=== PATIENT | female | born 1955 | race Caucasian/White ===

== ENCOUNTER 2020-12-16 09:57 | Outpatient (CLI) | payer OTHER, SELFPAY ==
--- NOTE | 2020-12-16 10:04 | MM_ITS ---
WS: [id number] BILATERAL DIGITAL SCREENING MAMMOGRAPHY WITH CAD CLINICAL INFORMATION: SCREENING HISTORY: Screening mammogram. No current complaints. COMPARISON: TECHNIQUE: Bilateral CC and MLO views. FINDINGS: Scattered fibroglandular densities bilaterally. No suspicious focal mass, asymmetry, calcifications, or architectural distortion. No evidence of malignancy. A few punctate and lucent centered calcificat ions. MM/[place] [id number] IMPRESSION: BI-RADS: 2-Benign FOLLOW UP: 1 Year Follow-up Recommend return to annual screening mammography.
== END 2020-12-16 09:58 | disposition home or self-care (01) ==
LOC: RADSHAW 10:03
PROVIDERS: Family Provider Family Medicine; PCP Family Medicine; Visit Provider Family Medicine
DX: Z12.31 Encounter for screening mammogram for malignant neoplasm of breast (principal)
CPT/HCPCS: 77067

== ENCOUNTER → 2022-04-02 12:15 | Outpatient (BNVA) | payer MEDICARE, SELFPAY | PROVIDERS: Family Provider Family Medicine; PCP Family Medicine; Visit Provider Family Medicine | DX: R10.2 Pelvic and perineal pain (principal); N39.0 Urinary tract infection, site not specified; L98.9 Disorder of the skin and subcutaneous tissue, unspecified | CPT/HCPCS: 81000; 87086 ==

== ENCOUNTER 2022-06-01 08:58 | Outpatient (CLI) | payer MEDICARE, SELFPAY ==
--- NOTE | 2022-06-01 09:07 | MM_ITS ---
WS: [id number] BILATERAL SCREENING DIGITAL TOMOSYNTHESIS MAMMOGRAM WITH CAD HISTORY: SCREENING COMPARISON: 12/16/2020 and 12/20/2018 Bilateral CC and MLO views with tomosynthesis and synthetic mammography submitted. Computer aided det ection analyzed. Breast composition: There are scattered areas of fibroglandular density. No suspicious masses, microc alcifications or architectural distortion. Benign calcifications in each breast. MM/[place] [id number] IMPRESSION: BI-RADS: 2-Benign FOLLOW UP: 1 Year Follow-up
== END 2022-06-01 08:59 | disposition home or self-care (01) ==
LOC: RAD 08:59
PROVIDERS: PCP Family Medicine; Visit Provider Family Medicine
DX: Z12.31 Encounter for screening mammogram for malignant neoplasm of breast (principal)
CPT/HCPCS: 77063; 77067

== ENCOUNTER → 2023-06-07 12:22 | Outpatient (BNVA) | payer MEDICARE, SELFPAY | PROVIDERS: PCP Family Medicine; Visit Provider Family Medicine | DX: Z51.81 Encounter for therapeutic drug level monitoring (principal); E78.5 Hyperlipidemia, unspecified; E53.8 Deficiency of other specified B group vitamins; R53.81 Other malaise; R53.83 Other fatigue; Z13.220 Encounter for screening for lipoid disorders; R73.09 Other abnormal glucose | CPT/HCPCS: 80053; 80061; 82607; 83036; 84439; 84443; 85025 ==

== ENCOUNTER 2023-06-09 10:51 | Outpatient (CLI) | payer MEDICARE, SELFPAY ==
--- NOTE | 2023-06-09 10:57 | MM_ITS ---
WS: [id number] BILATERAL SCREENING DIGITAL TOMOSYNTHESIS MAMMOGRAM WITH CAD HISTORY: SCREENING COMPARISON: 06/01/2022 and 12/16/2020 Bilateral CC and MLO views with tomosynthesis and synthetic mammography submitted. Computer aided det ection analyzed. Breast composition: There are scattered areas of fibroglandular density. No suspicious masses, microc alcifications or architectural distortion. Benign calcifications in each breast. IMPRESSION: MM/[place] [id number] BI-RADS: 2-Benign FOLLOW UP: 1 Year Follow-up
== END 2023-06-09 10:52 | disposition home or self-care (01) ==
LOC: RAD 10:51
PROVIDERS: PCP Family Medicine; Visit Provider Family Medicine
DX: Z12.31 Encounter for screening mammogram for malignant neoplasm of breast (principal)
CPT/HCPCS: 77063; 77067

== ENCOUNTER 2024-07-16 08:18 | Outpatient (CLI) | payer MEDICARE, SELFPAY ==
--- NOTE | 2024-07-16 08:30 | CT_ITS ---
WS: [id number] CT ABDOMEN AND PELVIS WITH CONTRAST HISTORY: LLQ abd pain TECHNIQUE: Imaging performed of the abdomen and pelvis with IV contrast. Single phase imaging of the abdomen. Coronal and sagittal reformats are submitted. All CT scans at [facility] use at [address] one of these dose optimization techniques: automated exposure control; mA and/or kV adjustment per patient size (includes targeted exams where dose is matched to clinical indication); or iterative re construction. IV CONTRAST: Omnipaque 350; 100 mL IV. Oral contrast: No DLP: 751.35 mGy.cm COMPARISON: 08/25/2022 Lower thorax: Lung bases are clear. Heart is normal size. No hiatal hernia. Liver/biliary system: Normal size liver. 6 mm low-attenuation nodule in the posterior RIGHT lobe of t he liver was present in 2012 also. No intrahepatic bile duct dilatation. Normal portal vein. Gallbladder: Prior cholecystectomy. Pancreas: Normal size pancreas and pancreatic duct. No adjacent inflammation. Spleen: Normal size spleen. No mass or infarct. Adrenal glands: Normal. Right kidney: Normal. Left kidney: Normal. Aorta: Mild atherosclerosis aorta. Limited enhancement of the mesenteric arteries as a function of th e contrast injection. Only a very small portion of the celiac axis is well opacified. Lymphadenopathy: None. Free fluid: None. GI tract: Nondistended stomach. No small bowel obstruction. Moderate diffuse constipation. There is h igh density curvilinear material in the cecum. Atypical configuration for undissolved medicinal table ts. This will need to be further evaluated. There are a few additional areas of increased density wit hin the distal small bowel also. Normal appendix. Descending colon and sigmoid colon diverticulosis. No acute diverticulitis. No obstructing lesions. Abdominal wall: Marked thinning of the abdominal wall musculature. Greater thinning on the RIGHT. Pelvis: Prior hysterectomy. Bones: Osteopenia. 5 mm anterolisthesis of L4. CT/CT abdomen pelvis w con* [id number] IMPRESSION: 1. No acute abdominal or pelvic abnormalities. 2. High density material in the cecum. This may be medicinal tablets. The conf iguration is not typical of medicinal tablets. Suggest CT follow-up. The most h elpful follow-up examination is probably repeat CT abdomen and pelvis with IV c ontrast only to evaluate a change in this high density material. Calcified mass needs to be excluded. 3. Distal colonic diverticulosis without acute diverticulitis. 4. Prior hysterectomy and cholecystectomy. 5. Normal appendix. 6. No GI tract ischemia. 7. Mesenteric vessels are poorly visualized. This is probably a function of li mited contrast bolus injection.
[2024-07-16 09:15] LABS: Blood Urea Nitrogen 8 mg/dL (8-23); Glomerular Filtration Rate 71.5 mL/min (90-130)
[2024-07-16] MEDS: iohexol 350 mg/mL 500 mL Btl (per mL) IV (09:24)
== END 2024-07-16 08:19 | disposition home or self-care (01) ==
PROVIDERS: PCP Family Medicine; Visit Provider Family Medicine
DX: K57.90 Diverticulosis of intestine, part unspecified, without perforation or abscess without bleeding (principal); R93.3 Abnormal findings on diagnostic imaging of other parts of digestive tract; Z90.49 Acquired absence of other specified parts of digestive tract; Z90.710 Acquired absence of both cervix and uterus
CPT/HCPCS: 74177; 82565; 84520

== ENCOUNTER → 2024-07-18 13:11 | Outpatient (BNVA) | payer MEDICARE, SELFPAY | PROVIDERS: PCP Family Medicine; Visit Provider Family Medicine | DX: Z00.00 Encounter for general adult medical examination without abnormal findings (principal); E55.9 Vitamin D deficiency, unspecified; Z13.6 Encounter for screening for cardiovascular disorders; Z51.81 Encounter for therapeutic drug level monitoring; Z13.220 Encounter for screening for lipoid disorders | CPT/HCPCS: 80053; 80061; 82306; 85025 ==

== ENCOUNTER 2024-07-24 11:42 | Outpatient (CLI) | payer MEDICARE, SELFPAY ==
--- NOTE | 2024-07-24 11:45 | MM_ITS ---
WS: [id number] Bilateral screening 3D tomosynthesis digital mammogram, 07/24/2024 11:45 AM Clinical Data: Screening mammogram Comparison: 06/09/2023, 06/01/2022, 12/16/2020, 12/20/2018, 10/05/2017, 08/11/2016, 11/29/2013, 02/23/2011, , 01/03/2009, 01/10/2008, 10/05/2006. Findings: No spiculated masses or clustered calcifications are seen. There are no secondary signs of carcinoma . MM/MM scr BI tomosynthesis [id number] Impression: Negative bilateral mammogram unchanged. Recommend annual screening mammograms. BIRADS: 1 - Negative. FOLLOW UP: 1 Year Follow-up DENSITY: There are scattered areas of fibroglandular density. The CAD construction checker was used
== END 2024-07-24 11:43 | disposition home or self-care (01) ==
LOC: RAD 11:43
PROVIDERS: PCP Family Medicine; Visit Provider Family Medicine
DX: Z12.31 Encounter for screening mammogram for malignant neoplasm of breast (principal)
CPT/HCPCS: 77063; 77067

== ENCOUNTER 2024-08-13 08:01 | Outpatient (CLI) | payer MEDICARE, SELFPAY ==
--- NOTE | 2024-08-13 09:30 | CT_ITS ---
WS: [id number] CT ABDOMEN AND PELVIS WITH CONTRAST HISTORY: Radiopaque lesion in the cecum - Needing follow up TECHNIQUE: Imaging performed of the abdomen and pelvis with IV contrast. Single phase imaging of the abdomen. Coronal and sagittal reformats are submitted. All CT scans at [facility] use at [facility] one of these dose optimization techniques: automated exposure control; mA and/or kV adjustment per patient size (includes targeted exams where dose is matched to clinical indication); or iterative re construction. IV CONTRAST: Omnipaque 350; 100 mL IV. Oral contrast: Yes. DLP: 729.56 mGy.cm COMPARISON: 07/16/2024 Lower thorax: Lung bases are clear. Heart is normal size. Small hiatal hernia. Liver/biliary system: Normal size liver with a stable 6 mm cyst in the posterior RIGHT lobe. No intra hepatic duct dilatation. Gallbladder: Prior cholecystectomy. Pancreas: Normal size pancreas and pancreatic duct. No adjacent inflammation. Spleen: Normal size spleen. No mass or infarct. Adrenal glands: Normal. Right kidney: Normal. Left kidney: Normal. Aorta: Normal. Lymphadenopathy: None. Free fluid: None. GI tract: No small bowel obstruction. Normally distended stomach. Cecum is deep within the pelvis. Pa tient was given oral contrast which obscures the intraluminal content and the previously described po ssible foreign body in the cecum. No obvious persistent abnormalities identified but limited due to t he oral contrast. There is no obstructive pattern. Moderate distal colonic diverticulosis without acu te diverticulitis. Abdominal wall: Unremarkable abdominal wall. No hernia. Marked thinning and atrophy of the RIGHT abdo rosina wall musculature. Pelvis: Prior hysterectomy. No free fluid. Bones: Mild increase in lumbar lordosis. L4 anterolisthesis by 5 mm. Moderate degenerative changes at the LEFT hip. CT/CT abdomen pelvis w con* [id number] IMPRESSION: 1. No persistent foreign body noted within the cecum. Limited evaluation as pa tient was given oral contrast which obscures the lumen of the GI tract for january ined foreign bodies. 2. No adenopathy or ascites. 3. No renal or GI tract obstruction. 4. Prior cholecystectomy and hysterectomy.
[2024-08-13] MEDS: iohexol 350 mg/mL 500 mL Btl (per mL) IV (09:35)
[2024-08-13] MEDS: iohexol 350 mg/mL 500 mL Btl (per mL) PO (09:35)
== END 2024-08-13 08:02 | disposition home or self-care (01) ==
LOC: RAD 08:04
PROVIDERS: PCP Family Medicine; Visit Provider Family Medicine
DX: R93.3 Abnormal findings on diagnostic imaging of other parts of digestive tract (principal); K44.9 Diaphragmatic hernia without obstruction or gangrene; K57.30 Diverticulosis of large intestine without perforation or abscess without bleeding; R93.5 Abnormal findings on diagnostic imaging of other abdominal regions, including retroperitoneum; M40.56 Lordosis, unspecified, lumbar region; M43.16 Spondylolisthesis, lumbar region; M16.12 Unilateral primary osteoarthritis, left hip; Z90.49 Acquired absence of other specified parts of digestive tract; Z90.710 Acquired absence of both cervix and uterus
CPT/HCPCS: 74177

== ENCOUNTER → 2025-03-14 10:40 | Outpatient (BNVA) | payer MEDICARE, SELFPAY | PROVIDERS: PCP Family Medicine; Referring Provider Family Medicine; Visit Provider Student in an Organized Health Care Education/Training Program | DX: K57.92 Diverticulitis of intestine, part unspecified, without perforation or abscess without bleeding (principal) | CPT/HCPCS: 99204 ==

== ENCOUNTER → 2025-04-02 09:14 | Outpatient (BNVA) | payer MEDICARE, SELFPAY | PROVIDERS: PCP Family Medicine; Visit Provider Physician Assistant | DX: G56.01 Carpal tunnel syndrome, right upper limb (principal) | CPT/HCPCS: 73130; 99213 ==

== ENCOUNTER 2025-04-30 10:24 | Day surgery (SDC) | payer MEDICARE, SELFPAY ==
[2025-04-30 10:58] VITALS: BP 145/96; PULSE 101; RESP 18; TEMP 36.4; O2SAT 98
[2025-04-30 10:59] VITALS: BMI 30.5
--- NOTE | 2025-04-30 11:19 | ANES.PREANE2 ---
Pre-Anesthetic Assessment Height/Weight: Height 1.7 m Weight 88.451 kg Temp Pulse Resp BP Pulse Ox 97.5 F L 101 H 18 145/96 98 04/30/25 10:58 04/30/25 10:58 04/30/25 10:58 04/30/25 10:58 04/30/25 10:58 Preop Diagnosis: abd pain Operation Date: 04/30/25 11:45 Proposed Procedures p Colonoscopy 54673 G0105 K57.92(Not Applicable) - Ra Adler MD Was Beta Adrian taken within 24 hours: N/A Was Clonidine taken within 24 hours: N/A Last intake: Intake Last Liquid Date 04/29/25 Last Solid Date 04/28/25 Social No alcohol and No tobacco Exam oriented x 3 Airway Submandibular: within normal limits Cervical ROM: within normal limits Mallampati: Class I Dentition: full History/ROS No significant history except as noted Pulmonary None reported CV/HEM None reported None reported Hepatic None reported GI Gastroesophageal Reflux Disease Metabolic None reported Musc/skel None reported Neuropsych None reported Anesthetic Plan ASA status: 1 Anesthesia: Anesthesia Evaluation Risk of > 500 ml blood loss (7ml/kg in children): No Medications/Allergies Home Medications ?Medication ?Instructions ?Recorded ?Confirmed ?Last Taken ?Type omega-3 fatty acids 1,000 mg 1,000 mg PO DAILY 04/02/25 04/30/25 04/28/25 History capsule (Super [place]-3) Allergies Allergy/AdvReac Type Severity Reaction Status Date / Time No Known Allergies Allergy Verified 04/30/25 11:06 Current Medications Generic Name Dose Route Start Last Admin Trade Name Freq PRN Reason Stop Dose Admin Sodium Chloride 1,000 mls @ 15 mls/hr 04/30/25 10:45 04/30/25 11:11 Sodium Chloride 0.9% IV 05/01/25 10:44 15 mls/hr .Q24H PRN Administration COLONOSCOPY FLUIDS PFSH Anesthesia Surgical History History of breast biopsy Benign History of bladder surgery bladder sling in 2013 with hysterectomy History of hysterectomy 2013 - [facility] Hx of hemorrhoidectomy 2003 History of conization of cervix 1989 - due to cervical cancer History of cholecystectomy 1987 History of back surgery 1985 Family History Mother CAD (coronary artery disease) MS, CHF Diabetes Brother Diabetes Son Patient killed Shot in 09/2018 - [place] Social History Smoking and tobacco/nicotine status: never used tobacco/nicotine Quit status (tobacco/nicotine): has quit using Year quit tobacco: 1991 Former quit date comment: Smoked for 18 years 1-2ppd Alcohol intake: current Alcohol intake frequency: holidays/special occasions only Substance/Drug Use: never Current occupation: Works at [employer]
--- NOTE | 2025-04-30 11:55 | P.HP_ITS ---
Same Day Surgery H&P Indication for Procedure/HPI DATE OF PROCEDURE: April 30, 2025 CHIEF COMPLAINT/INDICATIONFOR SURGICAL PROCEDURE: diverticulitis PREOP DIAGNOSIS: diverticulitis PLANNED PROCEDURE: Operation Date: 04/30/25 11:45 Proposed Procedures p Colonoscopy [id number] G0105 K57.92(Not Applicable) - Ra Adler MD Medications/Allergies* Home Medications ?Medication ?Instructions ?Recorded ?Confirmed ?Type omega-3 fatty acids 1,000 mg 1,000 mg PO DAILY 5 04/30/25 History capsule (Super [place]-3) Allergies/Adverse Reactions Allergy/AdvReac Type Severity Reaction Status Date / Time No Known Allergies Allergy Verified 04/30/25 11:06 Current Medications: Generic Name Dose Route Start Last Admin Trade Name Freq PRN Reason Stop Dose Admin Sodium Chloride 1,000 mls @ 15 mls/hr 04/30/25 10:45 04/30/25 11:11 Sodium Chloride 0.9% IV 05/01/25 10:44 15 mls/hr .Q24H PRN Administration COLONOSCOPY FLUIDS Pertinent History/Comorbid Conditions* Surgical History (Updated 04/02/22 @ 18:04 by Wilfred River MD) History of breast biopsy Benign History of bladder surgery bladder sling in 2013 with hysterectomy History of hysterectomy 2013 - [facility] Hx of hemorrhoidectomy 2003 History of conization of cervix 1989 - due to cervical cancer History of cholecystectomy 1987 History of back surgery 1985 Family History (Updated 04/02/22 @ 18:06 by Wilfred River MD) Patient killed Son Shot in 09/2018 - [place] Diabetes Mother Brother CAD (coronary artery disease) Mother MD, CHF Social History Smoking and tobacco/nicotine status: never used tobacco/nicotine Quit status (tobacco/nicotine): has quit using Year quit tobacco: 1991 Former quit date comment: Smoked for 18 years 1-2ppd Alcohol intake: current Alcohol intake frequency: holidays/special occasions only Substance/Drug Use: never Current occupation: Works at [employer] Pertinent Exam Findings alert, oriented x 3, clear to auscultation bilaterally, regular rate & rhythm and procedure specific exam findings abdomen soft, nt, nd Recommendations Risks and benefits of procedure reviewed and Patient/family agree to proceed Surgery/Procedure today Coding Level of Care Code Acute Code for Chg Fwd
--- NOTE | 2025-04-30 12:09 | SUR.OPER ---
Cecum 1209
[2025-04-30 12:20] VITALS: BP 119/78; PULSE 91; RESP 16; TEMP 36.1; O2SAT 98
[2025-04-30 12:32] VITALS: BP 135/79; PULSE 83; RESP 16; O2SAT 98
--- NOTE | 2025-04-30 13:00 | ANE.PACU2 ---
Inpatient post-anesthesia follow up: Airway intact: Yes Vital signs: Temperature 97 F Pulse Rate 83 Respiratory Rate 16 Blood Pressure 135/79 Pulse Oximetry 98 Oxygen Delivery Me thod Room Air Oxygen Flow Rate Fraction of Inspir ed Oxygen Hydration adequate: Yes Nausea and vomiting: No Pain level: 1 Mental status: Baseline
== END 2025-04-30 13:00 | disposition home or self-care (01) ==
PROVIDERS: PCP Family Medicine; Visit Provider Student in an Organized Health Care Education/Training Program
PROC: 0DJD8ZZ Inspection of Lower Intestinal Tract, Via Natural or Artificial Opening Endoscopic (ICD-10-PCS; CPT 45378; principal; 2025-04-30 11:45)
DX: K57.32 Diverticulitis of large intestine without perforation or abscess without bleeding (principal); K57.30 Diverticulosis of large intestine without perforation or abscess without bleeding; D12.0 Benign neoplasm of cecum; Z87.891 Personal history of nicotine dependence; K21.9 Gastro-esophageal reflux disease without esophagitis
CPT/HCPCS: 45385; 88305; J2704; J7030

== ENCOUNTER → 2025-05-13 13:28 | Outpatient (BNVA) | payer MEDICARE, SELFPAY | PROVIDERS: PCP Family Medicine; Visit Provider Student in an Organized Health Care Education/Training Program | DX: Z09 Encounter for follow-up examination after completed treatment for conditions other than malignant neoplasm (principal) | CPT/HCPCS: 99213 ==

== ENCOUNTER → 2025-07-19 11:26 | Outpatient (BNVA) | payer MEDICARE, SELFPAY | PROVIDERS: PCP Family Medicine; Visit Provider Family Medicine | DX: Z00.00 Encounter for general adult medical examination without abnormal findings (principal); Z51.81 Encounter for therapeutic drug level monitoring; Z13.6 Encounter for screening for cardiovascular disorders; E55.9 Vitamin D deficiency, unspecified; R73.09 Other abnormal glucose | CPT/HCPCS: 80053; 80061; 82306; 83036; 85025 ==

== ENCOUNTER 2025-07-25 11:02 | Outpatient (CLI) | payer MEDICARE, SELFPAY ==
--- NOTE | 2025-07-25 11:04 | MM_ITS ---
WS: [id number] Bilateral screening 3D tomosynthesis digital mammogram, 07/25/2025 11:06 AM Clinical Data: SCREENING Comparison: 07/24/2024, 06/09/2023, 06/01/2022, 12/16/2020, 12/20/2018, 10/05/2017, 08/11/2016, 11/29/2013, 02/23/2011, 01/02/2010, 01/03/2009, 01/10/2008. Findings: No spiculated masses or clustered calcifications are seen. There are no secondary signs of carcinoma. MM/MM scr BI tomosynthesis [id number] Impression: Negative bilateral mammogram unchanged. Recommend annual screening mammograms. BIRADS: 1 - Negative. FOLLOW UP: 1 Year Follow-up DENSITY: There are scattered areas of fibroglandular density. The CAD finished cloth checker was used
== END 2025-07-25 11:03 | disposition home or self-care (01) ==
LOC: RAD 11:02
PROVIDERS: PCP Family Medicine; Visit Provider Family Medicine
DX: Z12.31 Encounter for screening mammogram for malignant neoplasm of breast (principal); R92.323 Mammographic fibroglandular density, bilateral breasts
CPT/HCPCS: 77063; 77067